=== PATIENT | female | born 1995 | race Caucasian/White ===

== ENCOUNTER 2017-03-24 16:53 | Emergency (ER) | payer OTHER | END 2017-03-24 17:57 | disposition left against medical advice (07) | LOC: ER1 16:53 | DX: Z53.21 Procedure and treatment not carried out due to patient leaving prior to being seen by health care provider (principal) ==

== ENCOUNTER 2021-06-03 12:49 | Emergency (ER) | payer OTHER ==
[~2021-06-03 12:49] MED LIST: CLEOCIN HCL300 MG PO; IBUPROFEN600 MG PO; LEVOFLOXACIN250 MG PO; Viscous Lidocaine2% TOP
== END 2021-06-03 14:47 | disposition home or self-care (01) ==
LOC: ER1 12:49
DX: U07.1 COVID-19 (principal); F17.200 Nicotine dependence, unspecified, uncomplicated
CPT/HCPCS: 99283; U0002

== ENCOUNTER 2022-06-15 06:39 | Observation (INO) | payer OTHER ==
[~2022-06-15] VITALS: Ht 160 cm; Wt 90.7 kg
[2022-06-15 07:13] LABS: HEMOGLOBIN 12.2 gm/dl (12.3-15.3); RED BLOOD COUNT 4.42 M/UL (4.00-5.10); WHITE BLOOD COUNT 11.7 K/UL (4.5-11.0)
[2022-06-15 07:37] LABS: BUN/CREATININE RATIO 13 (0-10)
[2022-06-15] MEDS ORDERED: HYDROCODON-ACE1 EAC6 PO (11:26)
== END 2022-06-16 10:28 | disposition home or self-care (01) ==
LOC: ER1 06:39 → CDU 09:47
PROVIDERS: Physician Assistant; ADMIT Obstetrics & Gynecology
PROC: 0UT04ZZ Resection of Right Ovary, Percutaneous Endoscopic Approach (ICD-10-PCS; 2022-06-15)
PROC: 0UT54ZZ Resection of Right Fallopian Tube, Percutaneous Endoscopic Approach (ICD-10-PCS; 2022-06-15)
PROC: 10T24ZZ Resection of Products of Conception, Ectopic, Percutaneous Endoscopic Approach (ICD-10-PCS; principal; 2022-06-15 10:30)
DX: O00.101 Right tubal pregnancy without intrauterine pregnancy (principal); F17.210 Nicotine dependence, cigarettes, uncomplicated; E66.01 Morbid (severe) obesity due to excess calories
CPT/HCPCS: 76775; 76817; 80053; 81001; 84702; 85025; 86850; 86900; 86901; 96374; 96375; 96376; 99285; G0378; J1100; J2001; J2250; J2270; J2370; J2405; J2704; J2710; J2790; J2791; J2795; J3010; J7050